=== PATIENT | female | born 1945 | race Caucasian/White ===

== ENCOUNTER → 2018-02-09 | Outpatient (CLI) | payer OTHER, SELFPAY ==
[~2018-02-09] MED LIST: CYCL10 PO; HYDACE5 PO; MULVITMINF PO
== END | disposition home or self-care (01) ==
LOC: LAB SHORT 13:32 → PLD 13:32
DX: D04.72 Carcinoma in situ of skin of left lower limb, including hip (principal)
CPT/HCPCS: 88305

== ENCOUNTER → 2018-08-10 | Outpatient (CLI) | payer MEDICARE | END | disposition home or self-care (01) | LOC: LAB SHORT 10:33 → PLD 10:33 | DX: D48.5 Neoplasm of uncertain behavior of skin (principal) | CPT/HCPCS: 88305 ==